=== PATIENT | female | born 1945 | race Two or more races ===

== ENCOUNTER 2019-10-29 09:20 | Day surgery (SDC) | payer OTHER | END 2019-10-29 14:40 | disposition home or self-care (01) | LOC: AMB-ENDOS 09:20 → ADM 14:00 → AMB-ENDOS 14:40 | PROVIDERS: ATTEND Surgery | DX: K62.89 Other specified diseases of anus and rectum (principal); K62.7 Radiation proctitis ==

== ENCOUNTER 2021-01-12 06:37 | Day surgery (SDC) | payer OTHER | END 2021-01-12 11:20 | disposition home or self-care (01) | LOC: AMB-ENDOS 06:37 | PROVIDERS: ATTEND Surgery | DX: K62.89 Other specified diseases of anus and rectum (principal); Z20.822 Contact with and (suspected) exposure to COVID-19 ==